=== PATIENT | female | born 2000 | race Caucasian/White ===

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

== ENCOUNTER 2024-01-22 13:27 | Day surgery (SDC) | payer OTHER ==
--- NOTE | 2024-01-21 12:44 | P.HPOR ---
History of Present Illness H&P Date: 01/21/24 Subjective: This is a 23 year old female that presents today for initial evaluation regarding a right hand injury that occurred on 01/04/2024 when she hit her hand on a washing machine. She states at the time she didn't think much of the injury but due to continued pain she went to urgent care 1 week ago where x-rays were taken which revealed a fifth metacarpal fracture. She was placed in a splint. She is right-hand dominant. She denies any other areas of pain. She denies any prior injuries to this hand in the past. Physical Examination: RUE: AIN/PIN/Radial/Ulnar/Median motor intact. Radial/Ulnar/Median SILT. 2+/4 Radial/Ulnar pulses palpated. 5/5 APB, 5/5 FDI. Bruising and swelling present with her palpation over dorsum of the hand overlying the right fifth metacarpal shaft. normal cascade of digits. Prominent dorsal bump over the fracture site. Imaging: X-Rays of the right hand, 3 views taken in office today demonstrate a transverse fracture with some mild comminution in the middle third shaft region of the fifth metacarpal shaft fracture. 100% volar displacement, 45 volar angulation. Impression: 1.) Right 5th metacarpal shaft fracture, displaced. Plan: Diagnosis and treatment options were discussed with the patient. We discussed continued conservative treatment vs operative treatment. We discussed her fracture is significantly dispalced and angulated and that she would likely have a dorsal prominence over the fracture site if treated non operatively. We also discussed open reduction internal fixation and she wishes to proceed with price rgical intervention in the form of a right fifth metacarpal shaft fracture, open reduction internal fixation. We discussed details regarding intramedullary screw fixation if closed reduction is able to be performed. If not, she would require a mini open reduction followed by the compression screw fixation. Risks and benefits of surgery including bleeding, infection, damage to surrounding tissue, need for further surgery, residual numbness were discussed and the patient wished to go forward with surgery. The patient was agreeable with this plan. -Too Cleaning DO Orthopedic Hand/Upper Extremity Surgeon Past Medical History Past Medical History: No Reported History Additional Past Medical History / Comment(s): Fx rt 5th finger. mild cough with weather changes History of Any Multi-Drug Resistant Organisms: None Reported Past Surgical History: No Surgical Hx Reported Additional Past Anesthesia/Blood Transfusion Reaction / Comment(s): no anesthesia hx Smoking Status: Former smoker, Vaper - Past Family History Mother Family Medical History: No Reported History Medications and Allergies Home Medications Medication Instructions Recorded Confirmed Type No Known Home Medications 04/14/19 01/21/24 History Allergies Allergy/AdvReac Type Severity Reaction Status Date / Time No Known Allergies Allergy Verified 01/21/24 12:13 Physical Examination Osteopathic Statement: *. No significant issues noted on an osteopathic structural exam other than those noted in the History and Physical/Consult.
[2024-01-22] MEDS: LACTATED RINGERS 1,000 ML IV SCH (14:05)
[2024-01-22] MEDS: ONDANSETRON 4 MG/2 ML VIAL IVP STA (14:06)
[2024-01-22] MEDS: IV FLUID CONTINUATION 1,000 ML IV ONE (14:10)
[2024-01-22] MEDS ORDERED: LIDOCAINE 1% INJ 10MG/ML (20 ML MDV) ONE (15:26)
[2024-01-22] MEDS ORDERED: fentaNYL (PF) 50 MCG/ML 2 ML AMP ONE (15:26)
[2024-01-22] MEDS ORDERED: MIDAZOLAM 2 MG/2 ML VIAL ONE (15:26)
[2024-01-22] MEDS ORDERED: PROPOFOL 10 MG/ML 20 ML VIAL IV ONE (15:26)
[2024-01-22] MEDS: LIDOCAINE 2% INJ 20 MG/ML SQ ONE ×2 (15:51→16:09)
[2024-01-22] MEDS: BUPIVACAINE (PF) 0.5% 30 ML VIAL SQ ONE ×2 (15:51→16:09)
--- NOTE | 2024-01-22 16:17 | P.OP ---
Date of Procedure: 01/22/24 Preoperative Diagnosis: Right 5th metacarpal shaft fracture, displaced. Postoperative Diagnosis: Right 5th metacarpal shaft fracture, displaced. Procedure(s) Performed: Right 5th metacarpal shaft fracture open reduction internal fixation Implants: [place] 3.0mm headless compression screw size 36mm Anesthesia: MAC Surgeon: Too Cleaning Fusion Analyst #1: Eliud Lopez Estimated Blood Loss (ml): 0 Pathology: none sent Condition: stable Disposition: PACU Description of Procedure: This is a 23 year old female who sustained a significantly angulated right 5th metacarpal shaft fracture and presents today for surgical intervention. Risks and benefits of surgery were discussed with the patient including bleeding, damage to surrounding tissue, infection, need for further surgery as well as risks of anesthesia including pulmonary embolism and even and the patient wished to proceed with surgical intervention. The patient was seen in the pre- operative area by myself. Consent and H&P were completed and updated. The corre ct extremity was marked in the pre-operative area by myself and all other questions were answered. Operative Narrative: The patient was brought to the operating room by the department of anesthesia . They remained on the portable stretcher and a rolling hand table was brought to the side of the operative extremity. Pre-operative time out was performed indicating the correct patient, procedure and laterality. All in the room agreed. Pre-operative antibiotics were given prior to skin incision. The patient was then drifted off to sleep by the department of anesthesia. A nonsterile tourniquet was then applied to the operative extremity and the right upper extremity was then prepped and draped in normal sterile fashion. The operative extremity was the exsanguinated with an esmarch bandage and the tourniquet was inflated to 250mmHg. Reduction Maneuver was performed and acceptable reduction was achieved and confirmed under fluoroscopy. Longitudinal incision was made of the 5th MCP join t. Blunt dissection was taken down through subcutaneous tissues and the interval between the EDM and EDC to the small finger was incised with a scalpel. Longitudinal incision in the capsule was made and retractors were placed to protect the extensor tendons. A K-wire was then inserted on the dorsal aspect of the metacarpal head and advanced in retrograde fashion and advanced through the cortex of the 5th CMC joint. Intramedullary placement was confirmed on imaging. A drill was then used to perforated the near cortex and screw measurement was made by placing the screw over the bone on imaging. A rosalio 3.0mm x 36mm headless compression screw was then inserted over the guidewire and good compression and bite was appreciated as it was advanced. Rotation of the digit was checked and was found to be inline with the normal cascade of all digits. The wound was then irrigated. Skin closure was performed with 4-0 nylon sutures. 10cc's of 50:50 mixture of 0.5% bupivaine and 2% lidocaine was injected into the soft tissues around the fracture area and incision. Soft dressing was applied to the hand, the tourniquet was let down and the hand had immediate perfusion. The patient was then woken by the department of anesthesia and transferred to PACU in stable condition. Eliud RICHARDSON was present to assist in retraction and holding reduction of the fracture during hardware placement. Too Cleaning D.O. Orthopedic Hand/Upper Extremity Surgeon
[2024-01-22] MEDS: HYDROmorphone 0.5 MG/0.5 ML SYRINGE IVP PRN (16:37)
[2024-01-22 16:51] VITALS: TEMP 97.8
[2024-01-22 17:13] VITALS: RESP 16
[2024-01-22] MEDS: HYDROcodone/APAP 5-325MG 1 EACH TAB PO PRN (17:37)
[2024-01-22 17:47] VITALS: BP 100/63; PULSE 59
== END 2024-01-22 18:03 | disposition home or self-care (01) ==
LOC: OR 13:27
PROVIDERS: ATTEND Orthopaedic Surgery Hand Surgery
DX: S62.326A Displaced fracture of shaft of fifth metacarpal bone, right hand, initial encounter for closed fracture (principal); F41.9 Anxiety disorder, unspecified; F32.A Depression, unspecified; Z87.891 Personal history of nicotine dependence; Z79.899 Other long term (current) drug therapy; X58.XXXA Exposure to other specified factors, initial encounter
CPT/HCPCS: 81025; 26615; C1713; J2001 ×2; J2250; J0690; J2405; J3010; J2704; J1170; J0665